=== PATIENT | male | born 1985 | race Caucasian/White ===

== ENCOUNTER 2016-05-23 21:20 | Emergency (ER) | payer OTHER ==
[~2016-05-23 21:20] MED LIST: BENZONATATE; DIAZEPAM PO; HYDROCODONE; NO MEDICATIONS
[2016-05-23] MEDS ORDERED: BACTRIM DS TABL1 TA1 PO (21:57)
[2016-05-23] MEDS ORDERED: BACITRACIN1 GM OINT EXT (21:58)
[2016-05-23] MEDS ORDERED: KEFLEX500 M2 PO (21:58)
== END 2016-05-23 21:59 | disposition home or self-care (01) ==
LOC: SED 21:20
DX: L03.115 Cellulitis of right lower limb (principal)
CPT/HCPCS: 99282

== ENCOUNTER 2016-05-24 22:15 | Inpatient (IN) | payer OTHER ==
--- NOTE | ~2016-05-24 | HP ---
Unit #: [id number] #: [id number] Patient: DARLINE FERRELL [id number] [address] [place], [place] [address] [id number] I MR#: [id number] NAME: DARLINE FERRELL ROOM: 203 Age: 31 Sex: M Admission Date: 05/25/2016 : 1985 Attending Physician: Jessica Cat M.D. Primary Care Physician: Jael Rudd M.D. HISTORY AND PHYSICAL ADMISSION DIAGNOSES 1. Right lower extremity cellulitis. 2. IV drug abuse with polysubstance abuse. 3. History of questionable testicular cancer in childhood. 4. Leukocytosis. HISTORY OF PRESENT ILLNESS Mr. Ferrell is a 31-year-old gentleman, a patient of Dr. Cat, who apparently got a new tattoo on his right leg on the medial calf, and shortly after, he started noticing redness and erythema. He also was able to express some sort of sanguinous discharge out of the spot right below the right knee. He was seen by Dr. Cat, was put on p.o. Keflex and Bactrim. He noticed some improvement initially; however, later on he continued to have this erythema, which was getting worse, along with tenderness and swelling. Decided to come to the emergency room. In the emergency room initial evaluation with x-ray of the knee and tibia-fibula was unremarkable except for soft tissue swelling. His white count is 16,000. Cultures are currently pending, and he is status post evaluation by ID, who ordered a CT of the lower extremity. The patient's tox screen in the emergency room was positive for cocaine and amphetamine. On my interview, the patient initially denied any illicit drugs, saying he takes some Xanax every now and then. However, on further conversation he admitted getting IV injection on the left arm 2 or 3 days ago. He also admits smoking. Denies any alcohol abuse. He denies any other symptoms. Denies any chest pain, shortness of air, headache, dizziness, fever, chills, nausea, vomiting, diarrhea or abdominal pain. REVIEW OF SYSTEMS A 12-point review of systems on this patient is basically negative except as above. PAST MEDICAL HISTORY Significant for history of testicular cancer as a child. PAST SURGICAL HISTORY Again, surgery on testicle as a child. HOME MEDICATIONS None. ALLERGIES Penicillin. Unit #: [id number] #: [id number] Patient: DARLINE FERRELL SOCIAL HISTORY As above in the HPI. FAMILY HISTORY Unremarkable. PHYSICAL EXAMINATION GENERAL: The patient is a 31-year-old gentleman in no acute distress. VITAL SIGNS: BP 117/60, heart rate 88, respirations 18, temperature 98.3. HEENT: Head is atraumatic. Pupils are equal, round and reactive to light and accommodation. Extraocular muscles are intact. Oropharynx is clear. NECK: Neck is supple. No masses. No JVD. No bruit. RESPIRATORY: Chest is clear to auscultation bilaterally. CARDIOVASCULAR: S1, S2. No murmurs. ABDOMEN: Abdomen is soft, nontender, nondistended. EXTREMITIES: Lower extremities significant for right-sided edema with erythema up to the right knee. Peripheral pulses normal. NEUROLOGIC: Patient grossly intact. No focal deficits. DIAGNOSTIC STUDIES LABS: As above in HPI. UA showed trace leukocytes. IMAGING: As above in HPI. ASSESSMENT AND PLAN 1. Right lower extremity cellulitis. Continue vancomycin and Rocephin. Status post ID evaluation. Follow up on blood cultures. 2. Polysubstance abuse, including IV drug abuse. Counselled on the importance of quitting drug habits. If the blood culture is positive, he might need a RUTH to rule out subacute bacterial endocarditis. 3. History of questionable testicular cancer as a child. 4. Leukocytosis secondary to number 1. 5. GI and DVT prophylaxis. Started on Protonix. Continue Lovenox. 6. Questionable UTI. Continue Rocephin. Follow up on cultures. Dictated by Maximino Dye/kanu TD: 05/25/2016 14:28 JOB #: [id number] HISTORY AND PHYSICAL X Yosi German MD HISTORY AND PHYSICAL
--- NOTE | ~2016-05-24 | CO ---
Unit #: [id number] #: [id number] Patient: BENI FERRELL [id number] [address] [place], [place] [address] [id number] I MR#: [id number] NAME: BENI FERRELL ROOM: 203 Age: 31 Sex: M Admission Date: 05/25/2016 : 1985 Attending Physician: Jessica Cat M.D. Primary Care Physician: Jael Rudd M.D. Consultation Date: 05/27/2016 CONSULTATION REPORT REASON FOR CONSULTATION Right anterior leg abscess. HISTORY OF PRESENT ILLNESS Beni is a 31-year-old male who presented to the emergency room with swelling and erythema of the right leg. He tried some oral antibiotics without much improvement. Pain had been getting worse. He was seen in the emergency room on May 25, 2016. He was admitted for cellulitis. CT scan was performed. He was noted to have a developing abscess over the prepatellar bursal region. This was just anterior to the tibial tubercle. Patient does have history of IV drug use. PAST MEDICAL HISTORY 1. Polysubstance abuse. 2. Anxiety. 3. History of testicular cancer. ALLERGIES Penicillin. MEDICATIONS 1. Vancomycin. 2. Levaquin. SOCIAL HISTORY Positive for tobacco, alcohol, and drug use. REVIEW OF SYSTEMS No other pertinent positives or negatives noted other than what was mentioned in HPI. PHYSICAL EXAMINATION VITAL SIGNS: Temperature 98.7 degrees Fahrenheit, pulse 80, respiratory rate 16, oxygen saturation 100%, blood pressure 130/55. GENERAL: Patient is alert and oriented for examination. No acute distress. HEENT: Extraocular movements intact. Mucous membranes moist. Head atraumatic. NECK: Cervical spine midline. No JVD. LUNGS: Breathing nonlabored and chest rise symmetric. HEART: Pulse regular rate and rhythm. ABDOMEN: Soft, nontender, nondistended. EXTREMITIES: No significant clubbing, cyanosis, or edema of the extremities other than some mild swelling of the right leg. Focused Unit #: [id number] #: [id number] Patient: BENI FERRELL orthopedic exam of the right lower extremity reveals focal erythema and swelling over the anterior medial aspect of the tibial tubercle with probable fluctuance. No open skin wounds over this area. There is some erythema, warmth diffusely about the leg. Tenderness to palpation. Motion intact. DIAGNOSTIC STUDIES LABORATORY: BMP normal. White blood cell count 10.9, hemoglobin 14.6, platelets 211,000. Blood cultures negative. IMAGING: CAT scan reviewed of the right leg. There is an approximately 2 x 2 cm fluid collection over the anterior medial aspect of the tibial tubercle region and the subcutaneous tissue. This is most consistent with abscess. IMPRESSION A 31-year-old male with right anterior leg abscess. PLAN Discussed the findings with the patient. He is clinically doing better but does have a focal fluid collection. We discussed the options of monitoring with antibiotics versus surgical incision and drainage. He would like to proceed forward with the incision and drainage. I think this is reasonable secondary to the fluid collection. Will plan for incision and drainage of the right leg abscess. He is NPO. Risks, benefits, and alternatives were discussed. Informed consent will be obtained. Risks include but not limited to infection, bleeding, nerve injury, blood clots, risks associated with anesthesia, and possibly . All of his questions were answered. Dictated by... Clinton Mendez M.D. LAKEISHA/aviva TD: 05/27/2016 11:32 JOB #: [id number] CC: [phone] CONSULTATION REPORT X X CONSULTATION REPORT
--- NOTE | ~2016-05-24 | DS ---
Unit #: [id number] #: [id number] Patient: DARLINE FERRELL [id number] [address] [address] [id number] I MR#: [id number] NAME: DARLINE FERRELL ROOM: 203 Age: 31 Sex: M Admission Date: 05/25/2016 : 1985 Discharge Date: 05/29/2016 Attending Physician: Jessica Cat M.D. Primary Care Physician: Jael Rudd M.D. DISCHARGE SUMMARY FINAL DIAGNOSES 1. Right knee cellulitis. 2. Right proximal leg abscess, status post incision and drainage, which was done by Dr. Mendez. 3. History of intravenous drug abuse with polysubstance abuse. 4. Questionable history of testicular cancer in childhood. 5. Leukocytosis, which has resolved. DISCHARGE MEDICATIONS Doxycycline 100 mg p.o. b.i.d. for 10 days with food, Tylenol 650 q.6h p.r.n. CONSULTATION DURING HOSPITALIZATION 1. Dr. Mendez from Orthopedic surgery. 2. Dr. Woodward from Infectious Diseases. HOSPITAL COURSE The patient was admitted to hospital with increased pain and swelling of the right knee and right leg. The patient was admitted to med/surg unit. IV antibiotics were started. Dr. Woodward was consulted. The patient was on clindamycin and vancomycin. I and D was done by Dr. Mendez. Culture is growing MRSA. The patient will be discharged home on doxycycline for 10 days. Plan of care has been discussed with patient at length. Vital signs on discharge, blood pressure is 143/67, respiratory rate 20, pulse is 75, temperature 98.5. Chest, fair air entry. CVS, regular rhythm. Right leg dressing is present. DISCHARGE INSTRUCTIONS 1. Follow up with primary care provider in 1 week. 2. Follow up with Dr. Mendez as scheduled. 3. Continue dressing b.i.d. 4. Complete course of antibiotics. 5. Drug cessation counseling done. Dictated by... Jessica Cat M.D. ISAMAR/yobany TD: 05/31/2016 04:43 JOB #: [id number] Unit #: [id number] #: [id number] Patient: DARLINE FERRELL DISCHARGE SUMMARY X Jessica Cat MD X DISCHARGE SUMMARY
--- NOTE | ~2016-05-24 | CT93 ---
[facility] A Service of [facility] & [facility] RADIOLOGY TEXT RESULTS PATIENT: DARLINE FERRELL LOCATION: C2A : 84 UNIT #: [id number] AGE: [address]: Jessica Cat MD SEX: M ORDER DR: [id number] [facility] [address] [facility]. [place], [place] [address] [id number] I MR#: [id number] Acc #: [id number] NAME: DARLINE FERRELL. : 1985 SEX: M STUDY DATE/TIME: 05/25/2016 11:05 UNIT: C2A ROOM: 203 STUDY DESCRIPTION: CT Lower Ext Rt W Cont Attending Physician: Jessica Cat M.D. Ordering Physician: Physician Non-Staff Primary Care Physician: Jael Rudd M.D. MEDICAL IMAGING REPORT This report is preliminary unless electronic signature is present EXAM MRI of the right knee with IV contrast, 05/25/2016. COMPARISON Right knee and right tibia-fibula radiographs. 05/24/2016. HISTORY Order states CT with contrast right lower extremity (rule out abscess distal patellar region). Infectious disease consult note states 31-year-old male with history of ? testicular cancer as a child and 3 right knee surgeries. Patient reports tattoo 1 month ago and now several days of right lower extremity swelling with a small area of pus. No fever. Technologist reports pain and swelling for few days with redness and warmth to the touch. FINDINGS The exam was performed after a full 2 minutes post IV contrast injection delay. There is extensive subcutaneous inflammation, edema, and/or cellulitis throughout the scanned portion of the lower leg (immediate suprapatellar region through the proximal two thirds of the tibia). The entire extent of the inflammation inferiorly is not included. There is associated skin thickening in the knee and proximal tibia region. No open wound is identified. There is concern for a smaller developing fluid collection anteromedially at the level of the tibial tubercle and distal patellar tendon. It measures approximately 2 cm craniocaudal x 2.4 cm transverse. AP dimension is approximately 1.1 cm. The inflammation and fluid collection are in the region of the superficial prepatellar tendon bursa. Findings could reflect infectious bursitis with an abscess. If there is any concern for DVT, venous ultrasound would need to be considered. There is no CT evidence of such but CT and is not as STS. [facility] A Service of [facility] & [facility] RADIOLOGY TEXT RESULTS PATIENT: DARLINE FERRELL LOCATION: [place] [address] : [birth year] UNIT #: [id number] AGE: [address]: Jessica Cat MD SEX: M ORDER DR: sensitive as venous Doppler. There is a minimal knee joint effusion. There is no definitive evidence of septic arthritis. No fracture, bony lesion, or osteomyelitis is noted. IMPRESSION 1. Fairly extensive knee and lower leg subcutaneous inflammation, edema, and/or cellulitis predominates anteriorly and in the region of the superficial prepatellar/prepatellar tendon bursa. At the level of the medial aspect of the tibial tubercle is a suspected to 2.4 x 2.0 x 1.1 cm fluid collection compatible with infectious bursitis and/or abscess. 2. No fracture or evidence of osteomyelitis. 3. Small nonspecific knee joint effusion without definite septic arthritis. 4. No deep space inflammation or fluid collection is identified. Dictated by... Ciera Chapin M.D. THIS IS AN ELECTRONICALLY VERIFIED REPORT Ciera Chapin M.D. at 05/27/2016 1:15 PM JOAN/logan TD: 05/25/2016 16:45 JOB #: [id number] MEDICAL IMAGING REPORT COPY
--- NOTE | ~2016-05-24 | CR173 ---
[facility] A Service of [facility] & [facility] RADIOLOGY TEXT RESULTS PATIENT: DARLINE FERRELL LOCATION: [facility] : 84 UNIT #: [id number] AGE: [address]: Jessica Cat MD SEX: M ORDER DR: [id number] [place] [id number] [facility]. [place], [place] [address] [id number] I MR#: [id number] Acc #: [id number] NAME: DARLINE FERRELL : 1985 SEX: M STUDY DATE/TIME: 05/24/2016 22:03 UNIT: [facility] ROOM: [facility] STUDY DESCRIPTION: CR Knee 3 Views Rt Attending Physician: Jessica Cat M.D. Ordering Physician: Jackie Engle M.D. Primary Care Physician: Jael Rudd M.D. MEDICAL IMAGING REPORT This report is preliminary unless electronic signature is present EXAM Right knee 3 views 05/24/2016 HISTORY Right knee pain, swelling and redness for 3 days, cellulitis. FINDINGS 3 views of the right knee demonstrate no fracture. There is degenerative change with mild narrowing of the lateral compartment of the knee and there are small osteophytes bordering the lateral compartment and along the posterior aspect of the patella. The bones are normally mineralized. There is no joint effusion. Soft tissue swelling is seen about the right knee. IMPRESSION 1. Degenerative change about the right knee. No evidence of fracture. 2. Mild soft tissue swelling about the right knee. Dictated by... James Falcon M.D. THIS IS AN ELECTRONICALLY VERIFIED REPORT James Falcon M.D. at 05/25/2016 2:57 PM AJITH/lyndsay TD: 05/25/2016 09:00 JOB #: [id number] MEDICAL IMAGING REPORT COPY
--- NOTE | ~2016-05-24 | OR ---
Unit #: [id number] #: [id number] Patient: DARLINE FERRELL [id number] [address] [place], [place] [address] [id number] I MR#: [id number] NAME: DARLINE FERRELL ROOM: 203 Date of Procedure: 05/27/2016 Admission Date: 05/25/2016 Surgeon: Clinton Mendez M.D. : 1985 Attending Physician: Jessica Cat M.D. Primary Care Physician: Jael Rudd M.D. OPERATIVE REPORT PREOPERATIVE DIAGNOSIS Right proximal leg abscess. POSTOPERATIVE DIAGNOSIS Right proximal leg abscess. PROCEDURE PERFORMED Incision and drainage, right proximal leg abscess. LUNCHROOM OPERATOR None. ANESTHESIA General with LMA. COMPLICATIONS None. SPECIMENS Culture swabs were sent from wound. DRAINS Bassett placed in the wound. SURGICAL IMPLANTS None. INDICATIONS FOR PROCEDURE Mr. Ferrell is a 31-year-old male, IV drug abuser with developing right proximal leg abscess likely due to injection site. CT scan confirmed fluid collection. It was felt he would benefit from I and D. Risks, benefits, and alternatives were discussed with the patient. Informed consent was obtained. Risks include, but not limited to, persistent infection, bleeding, nerve injury, blood clots, risks associated with anesthesia, and possibly . DESCRIPTION OF PROCEDURE On 05/27/2016, the patient was seen in the preoperative holding area, where his surgical site was marked. Preoperative antibiotics were received. H and P and consent updated. The patient was taken to the operating room and placed on the operating table in supine position. General anesthesia was provided without complication. Right leg was Unit #: [id number] #: [id number] Patient: DARLINE FERRELL prepped and draped in typical sterile fashion. Time-out was performed confirming the correct surgical site and procedure. 1 inch incision made over the anterior medial aspect of the proximal tibia over the area of the abscess. Incision was taken down through the skin and subcutaneous tissue. Large amount of purulent fluid expressed. Culture swab sent. The wound was then irrigated with roughly 3 L normal saline containing bacitracin. Any necrotic subcutaneous tissue was removed with a rongeur. Once this was complete, hemostasis was noted. The wound was dried. A single 2-0 nylon stitch was placed to approximate the skin edges. A quarter-inch Bassett drain placed to allow for drainage from the abscess. 4x4s, ABD pad, Kerlix, and Christoph bandage were placed. The patient was subsequently awakened from general anesthesia in stable condition and taken to PACU postoperatively. POSTOPERATIVE PLAN The patient will return to his room. Continue antibiotics. Check cultures. He will be weightbearing as tolerated. Aurora will be pulled tomorrow. Daily dressing changes. No complications were encountered during the surgical procedure. Dictated by... Clinton Mendez M.D. LAKEISHA/yobany TD: 05/27/2016 13:12 JOB #: [id number] OPERATIVE REPORT X X PROCEDURE OPERATIVE NOTE
--- NOTE | ~2016-05-24 | CR253 ---
[facility] A Service of [facility] & [facility] RADIOLOGY TEXT RESULTS PATIENT: DARLINE FERRELL LOCATION: [facility] 203-01 : 84 UNIT #: [id number] AGE: [address]: Jessica Cat MD SEX: M ORDER DR: [id number] [facility] [address] [facility]. [place], [place] [address] [id number] I MR#: [id number] Acc #: [id number] NAME: DARLINE FERRELL : 1985 SEX: M STUDY DATE/TIME: 05/24/2016 22:07 UNIT: [facility] ROOM: [facility] STUDY DESCRIPTION: CR Tibia and Fibula 2 Views Rt Attending Physician: Jessica Cat M.D. Ordering Physician: Jackie Engle M.D. Primary Care Physician: Jael Rudd M.D. MEDICAL IMAGING REPORT This report is preliminary unless electronic signature is present EXAM Right tibia and fibula, 3 views, 05/24/2016. HISTORY Right lower extremity pain, swelling and redness, cellulitis for 3 days. No known injury. FINDINGS There is no evidence of fracture, dislocation, or radiopaque foreign body. IMPRESSION Normal tibia and fibula. Dictated by... James Falcon M.D. THIS IS AN ELECTRONICALLY VERIFIED REPORT James Falcon M.D. at 05/25/2016 2:57 PM KRT/juan TD: 05/25/2016 09:00 JOB #: [id number] MEDICAL IMAGING REPORT COPY
--- NOTE | ~2016-05-24 | CO ---
Unit #: [id number] #: [id number] Patient: DARLINE FERRELL [id number] [address] [place], [place] [address] [id number] I MR#: [id number] NAME: DARLINE FERRELL ROOM: 465 Age: 31 Sex: M Admission Date: 05/25/2016 : 1985 Attending Physician: Jessica Cat M.D. Primary Care Physician: Jael Rudd M.D. Consultation Date: 05/25/2016 CONSULTATION REPORT ADMITTING PHYSICIAN The patient was admitted to Dr. Cat. REASON FOR CONSULTATION Cellulitis. HISTORY OF PRESENT ILLNESS This is a 31-year-old male that has a history of questionable testicular cancer as a child, status post surgery; however, details are unclear and right knee meniscus surgery x3. The patient reports he had a tattoo placed on his right lower extremity approximately one month ago and now several days, he has had swelling, pain of his right lower extremity with associated erythema. Patient also noted that he had been able to express pus out of a small area distal to his patella. The patient was given Keflex and Bactrim as an outpatient. He initially reported to do well for about one to two days but then began again with increasing swelling, pain, and erythema. The patient was brought to the emergency room and he was admitted for further evaluation. The patient denies any fever at home. He was noted to have leukocytosis in the emergency room and he suggests significant pain. Patient denies any IV drug abuse; however, his tox screen is positive for cocaine but negative for opiates. He denies any recent trauma. He reports an allergy to penicillin that he was told as a child but took Keflex without difficulty. PAST MEDICAL HISTORY 1. Polysubstance abuse. 2. Anxiety. 3. Testicular cancer, per the records. However, patient is unclear if he actually had cancer but knows that he did have testicular surgery as a child. Patient has also had right knee surgery x3. ALLERGIES Penicillin, again patient was told this as a child. However, he has taken Keflex without difficulty. MEDICATIONS Vancomycin and Levaquin. For other medications, please refer to patient's MAR. SOCIAL HISTORY Positive tobacco. Positive alcohol. Positive pill use. However, he does have a positive drug screen that is positive for cocaine and amphetamines. REVIEW OF SYSTEMS Unit #: [id number] #: [id number] Patient: DARLINE FERRELL The patient denies any fevers, chills, or sweats. He denies any chest pain, shortness of breath. Denies any nausea, vomiting, diarrhea, or change in appetite. He reports significant pain, swelling, redness, and difficulty with ambulation with his right lower extremity. PHYSICAL EXAMINATION VITAL SIGNS: Temperature 98.3, pulse is 88, blood pressure 117/60, respiratory rate 18. GENERAL: This no apparent distress male is resting in the bed comfortably. HEENT: His pupils are equal. NECK: His neck is supple. CARDIOVASCULAR: S1, S2. Regular rate and rhythm. PULMONARY: Clear to auscultation bilaterally with no wheezes or rhonchi noted. ABDOMEN: Positive bowel sounds. Soft, nontender. EXTREMITIES: No clubbing, cyanosis. Right lower extremity distal to the patella did show a small area of a scabbed lesion. There is no significant effusion that is palpated on physical exam. There is marked erythema just above the knee and to the ankle with some associated swelling. DIAGNOSTIC STUDIES LABORATORY: BUN 6, creatinine 0.6, sodium 133, potassium 3.6, chloride 97, CO2 of 27. Bilirubin 0.6, AST 79, ALT 247. WBC 16.7, hemoglobin 16.5, hematocrit 48.3, platelets 211,000. Tox screen shows positive cocaine and amphetamines. Urinalysis is unremarkable. Urine culture is pending. IMAGING: Patient reports that he did have an x-ray; however, I do not see it in the chart at this time. IMPRESSION A 31-year-old male with a tattoo one month ago, now with several day history of some swelling and redness distal to his patella. This is not directly at the site of the tattoo but adjacent to it. At this time, the patient was nonresponsive to outpatient antibiotics of Keflex and Bactrim. At this time, would like to treat patient as right lower extremity cellulitis and rule out abscess. Would vancomycin for methicillin-resistant Staphylococcus aureus coverage and change Levaquin to ceftriaxone. The patient appears to have tolerated cephalosporins without difficulty at home. Would also check a CT scan with contrast to rule out abscess. Will check labs in the morning, blood cultures x2, and have the patient elevate his lower extremity on two pillows while in bed. This case will be discussed with Dr. Luis Woodward. Thank you for allowing us to participate in the care of this patient. Further recommendations to follow pending patient's clinical course. Patient was noted also to have some elevated liver function tests and will defer this to the admitting team. Dictated by... Bertrand HesterPIngaRIngaN. for Luis Woodward M.D. [facility]/ Unit #: [id number] #: [id number] Patient: DARLINE FERRELL TD: 05/25/2016 09:27 JOB #: [id number] CONSULTATION REPORT X X CONSULTATION REPORT
[~2016-05-24 22:15] MED LIST changes: +BACITRACIN1 GM OINT EXT; +BACTRIM DS TABL1 TA1 PO; +KEFLEX500 M2 PO
[2016-05-24 22:48] LABS: BASOPHIL# 0.1 X10e3 (0-0.3); BASOPHIL% 0.6 % (0-2.5); EOSINOPHIL# 0.2 X10e3 (0-0.7); HEMATOCRIT 48.3 % (38.0-50.0); HEMOGLOBIN 16.5 gm/dL (13.0-16.0); LYMPHOCYTE# 2.8 X10e3 (1.0-3.5); LYMPHOCYTE% 16.9 % (17.0-45.0); MEAN CELL VOLUME 94.4 FL (83-96); MEAN CORPUSCULAR HEMOGLOBIN 32.2 PG (28-34); MEAN CORPUSCULAR HGB CONC 34.1 g/dL (30-36); MEAN PLATELET VOLUME 8.5 FL (6.5-11.5); MONOCYTE# 1.9 X10e3 (0-1.0); MONOCYTE% 11.7 % (3.0-12.0); NEUTROPHIL# 11.6 X10e3 (1.5-7.1); NEUTROPHIL% 69.8 % (40-75); PLATELET COUNT 211 X10e3 (140-420); RED BLOOD COUNT 5.12 X10e (3.90-5.60); RED CELL DISTRIBUTION WIDTH 12.8 % (11.0-15.5); WHITE BLOOD COUNT 16.7 X10e3 (4.0-10.5)
[2016-05-24 22:50] LABS: DIFF IND YES
[2016-05-24 22:54] LABS: PARTIAL THROMBOPLASTIN TIME 27.5 SECONDS (23.5-31.3); PROTHROMBIN TIME (PATIENT) 10.6 SECONDS (9.6-11.5)
[2016-05-24 23:05] LABS: ALBUMIN SERUM 3.9 g/dL (3.5-5.0); ALKALINE PHOSPHATASE 112 U/L (32-92); ALT (SGPT) 247 U/L (10-40); AST (SGOT) 79 U/L (10-42); BILIRUBIN, DIRECT 0.2 mg/dL (0.0-0.2); BILIRUBIN,INDIRECT 0.4 mg/dL (0.0-0.9); BILIRUBIN,TOTAL 0.6 mg/dL (0.2-2.0); BLOOD UREA NITROGEN 6 mg/dL (9-23); CARBON DIOXIDE 27 mmol/L (22-31); CHLORIDE 97 mmol/L (100-111); CREATININE SERUM 0.6 mg/dL (0.6-1.4); GLOM FILT RATE Estimated ABOVE60 mL/min (>60); GLUCOSE FASTING 88 mg/dL (70-110); POTASSIUM 3.6 mmol/L (3.5-5.1); PROTEIN TOTAL SERUM 7.8 g/dL (6.0-8.3); SODIUM 133 mmol/L (135-145)
[2016-05-24 23:15] LABS: ALCOHOL BLOOD <5 mg/dL (0)
[2016-05-24 23:20] LABS: PLATELET ESTIMATE NORMAL (NORMAL)
[2016-05-25 00:07] LABS: URINE SOURCE CLEAN CATCH
[2016-05-25 00:19] LABS: URINE APPEARANCE CLEAR; URINE BILIRUBIN NEG (NEG); URINE BLOOD NEG (NEG); URINE COLOR YELLOW; URINE GLUCOSE NEG (NEG); URINE KETONE NEG (NEG); URINE LEUKOCYTE ESTERASE TRACE (NEG); URINE NITRATE NEG (NEG); URINE PH 6.5 (5-8); URINE PROTEIN NEG (NEG); URINE SPECIFIC GRAVITY 1.009 (1.003-1.035); URINE UROBILINOGEN 0.2 MG/DL (NEG)
[2016-05-25 00:23] LABS: CULTURE INDICATED? YES; URBCS1 AUWI 0-2 /[HPF] (0-2); URINE BACTERIA AUWI NEG (NEGATIVE); URINE SQUAMOUS EPITHELIAL CELL NONE SEEN /[HPF]
[2016-05-25 01:42] LABS: AMPHETAMINE POS (NEG); BARBITURATES NEG (NEG); BENZODIAZEPINES NEG (NEG); COCAINE POS (NEG); MARIJUANA NEG (NEG); OPIATES NEG (NEG); TRICYCLIC ANTIDEPRESSANTS NEG (NEG); U METHADONE NEG (NEG)
[2016-05-26 05:42] LABS: HEMATOCRIT 43.2 % (38.0-50.0); HEMOGLOBIN 14.6 gm/dL (13.0-16.0); MEAN CORPUSCULAR HEMOGLOBIN 32.1 PG (28-34); MEAN CORPUSCULAR HGB CONC 33.8 g/dL (30-36); MEAN PLATELET VOLUME 8.1 FL (6.5-11.5); RED BLOOD COUNT 4.54 X10e (3.90-5.60); RED CELL DISTRIBUTION WIDTH 12.8 % (11.0-15.5); WHITE BLOOD COUNT 10.9 X10e3 (4.0-10.5)
[2016-05-26 06:49] LABS: BLOOD UREA NITROGEN 7 mg/dL (9-23); BUN/CREATININE RATIO 11.66; CALCIUM SERUM 8.8 mg/dL (8.4-10.2); CARBON DIOXIDE 24 mmol/L (22-31); CHLORIDE 106 mmol/L (100-111); CREATININE SERUM 0.6 mg/dL (0.6-1.4); GLOM FILT RATE Estimated ABOVE60 mL/min (>60); GLUCOSE FASTING 108 mg/dL (70-110); SODIUM 138 mmol/L (135-145)
[2016-05-28 01:37] LABS: HEMATOCRIT 41.4 % (38.0-50.0); MEAN CELL VOLUME 95.8 FL (83-96); MEAN CORPUSCULAR HEMOGLOBIN 32.3 PG (28-34); MEAN CORPUSCULAR HGB CONC 33.7 g/dL (30-36); MEAN PLATELET VOLUME 7.7 FL (6.5-11.5); RED BLOOD COUNT 4.33 X10e (3.90-5.60); RED CELL DISTRIBUTION WIDTH 12.7 % (11.0-15.5); WHITE BLOOD COUNT 8.5 X10e3 (4.0-10.5)
[2016-05-28 02:00] LABS: BLOOD UREA NITROGEN 8 mg/dL (9-23); CALCIUM SERUM 8.5 mg/dL (8.4-10.2); CARBON DIOXIDE 26 mmol/L (22-31); CHLORIDE 104 mmol/L (100-111); CREATININE SERUM 0.8 mg/dL (0.6-1.4); GLOM FILT RATE Estimated ABOVE60 mL/min (>60); GLUCOSE FASTING 190 mg/dL (70-110); POTASSIUM 3.7 mmol/L (3.5-5.1); SODIUM 138 mmol/L (135-145)
[2016-05-29] MEDS ORDERED: DOXYCYCLINE HY100 M3 PO (14:50)
[2016-05-29] MEDS ORDERED: PAIN RELIEF325 M1 PO (14:51)
[2016-05-29] MEDS ORDERED: TRAMADOL HCL50 M1 PO (14:52)
== END 2016-05-29 15:26 | disposition home or self-care (01) | DRG 603 ==
LOC: CED 22:15 → CEDOF 05-25 00:23 → C4C 05-25 01:29 → C2A 05-25 13:17
PROVIDERS: Emergency Medicine; Nurse Practitioner Family; Orthopaedic Surgery; Physician Assistant Medical
PROC: 0J9N00Z Drainage of Right Lower Leg Subcutaneous Tissue and Fascia with Drainage Device, Open Approach (ICD-10-PCS; principal; 2016-05-27 11:30)
DX: L02.415 Cutaneous abscess of right lower limb (principal); B95.62 Methicillin resistant Staphylococcus aureus infection as the cause of diseases classified elsewhere; F41.9 Anxiety disorder, unspecified; L03.115 Cellulitis of right lower limb; F19.10 Other psychoactive substance abuse, uncomplicated; Z85.47 Personal history of malignant neoplasm of testis; Z88.0 Allergy status to penicillin; F17.200 Nicotine dependence, unspecified, uncomplicated
CPT/HCPCS: 36415; 73562; 73590; 73701; 80048; 80076; 80202; 80307; 81003; 85025; 85027; 85610; 85652; 85730; 86140; 87040; 87070; 87075; 87077; 87086; 87186; 87205; 90471; 90715; 96365; 96366; 99285; G0480; J0696; J1650; J1885; J1956; J2405; J3010; J3370; Q9967

== ENCOUNTER 2016-06-18 05:33 | Emergency (ER) | payer OTHER ==
[~2016-06-18 05:33] MED LIST changes: +DOXYCYCLINE HY100 M3 PO; +PAIN RELIEF325 M1 PO; +TRAMADOL HCL50 M1 PO
== END 2016-06-18 06:23 | disposition home or self-care (01) ==
LOC: CED 05:33
DX: H66.002 Acute suppurative otitis media without spontaneous rupture of ear drum, left ear (principal); F17.210 Nicotine dependence, cigarettes, uncomplicated; Z88.0 Allergy status to penicillin
CPT/HCPCS: 99282